=== PATIENT | female | born 1955 | race Caucasian/White ===

== ENCOUNTER 2017-04-28 14:23 | Inpatient (IN) ==
--- NOTE | 2017-04-28 15:12 | XRay Report ---
XR chest 2V Indication: Hemoptysis Comparison: Chest x-ray dated January 08, 2016 Technique: Frontal and lateral views of the chest Findings: The cardiomediastinal silhouette is stable in configuration. Chronic change of the lungs present. There is interval development of opacification within the lower/lateral left lung which may reflect consolidative process such as pneumonia. Visualized osseous and surrounding soft tissue structures appear grossly unchanged. IMPRESSION: As above. PROCEDURE INTERPRETED AT [facility] DEPARTMENT OF RADIOLOGY Final Report Signed by: Dr Carlton Cassidy
[2017-04-28 15:19] LABS: Basophils # 0.1 10*3/uL (0.0-0.2); Basophils % 0.4 % (0.0-0.8); Eosinophils # 0.1 10*3/uL (0.0-0.87); Hematocrit 34.2 VOL% (35.7-47.0); Hemoglobin 10.5 GM/DL (12.0-16.0); Immature Granulocytes % 0.6 %; Immature Granulocytes Absolute 0.07 #; Lymphocytes # 2.2 10*3/uL (1.4-4.0); Lymphocytes % 18.2 % (21.3-54.2); Mean Corpuscular HGB Conc 30.7 GM/DL (32-36); Mean Corpuscular Hemoglobin 23 PG (27-34); Mean Corpuscular Volume 74.5 FL (87-102); Mean Platelet Volume 10.4 FL (9.6-12.0); Monocytes # 1.1 10*3/uL (0.11-0.8); Monocytes % 9.3 % (1.7-12.7); Neutrophils # 8.4 10*3/uL (1.4-7.4); Neutrophils % 70.5 % (38.7-73.9); Platelet Count 458 T/CUMM (130-400); Red Blood Count 4.59 MC/CUMM (3.8-5.5); Red Cell Distribution Width 18.3 % (9.3-17.3); White Blood Count 11.9 T/CUMM (4-12)
[2017-04-28 15:32] LABS: PT Patient Result 10.1 SECS; Partial Thromboplastin Time 26.1 SECS (0-40)
--- NOTE | 2017-04-28 15:35 | Emergency Department Note ---
Maribel Patrick Gwan, am scribing for, and in the presence of, Jeremy Man MD 15:09 . Magda Patrick James D, MD, personally performed the services described in this documentation, ascribed by Vazquez López in my presence, and it is both accurate and complete [id number] . Arrival - Arrival Chief Complaint: Shortness of Breath Stated Complaint: COUGHING BLOOD/SOB/[facility] Nursing Triage Note: PT C/O SHORTNESS OF BREATH SINCE FRIDAY WITH PAINS TO LEFT RIBS WITH DEEP BREATHS. PT REPORTS SHE BEGAN COUGHING UP BRIGHT RED BLOOD THIS MORNING. PT WEARS CONTINUOUS O2 AT 3L/NC Mode of Arrival: Wheelchair Limitations: No Limitations Source: Patient, Old Records Reviewed, RN Notes Reviewed Time Seen by Provider: 04/28/17 14:47 - History of Present Illness HPI Narrative: Patient is a 61 y/o female, with a hx of bilateral lung reduction performed by Dr. Newton, who presents to the ED with a c/o SOB with an onset 3 days ago. Patient stated that she has pain in left rib with deep breathe. This prompted her visit to the ED. She continued to note [facility] 1 teaspoon full Hemoptysis prompting her visit to the ED. Nurses noted that pt is wearing O2 at 3L/NC. Patient informed staff that she was on the transplant list for lung replacement but due to her opting out of surgery, she has to report to [facility] in [place] once a year. She confirmed that she has been wheezing more than usual, that she has had a subjective fever and that she receives relief is she sits upright to breathe. At time of triage, pt' s temperature was 98.1. She denies any pain in her calf muscles or any hx of kidney failure. No other problems/concerns reported in ED. Onset (ago): day(s) Consistency: constant Severity: moderate Allergies/Adverse Reactions: Allergies Allergy/AdvReac Type Severity Reaction Status Date / Time codeine Allergy RASH Verified 04/28/17 14:35 enalaprilat [From Vasotec] Allergy RASH Verified 04/28/17 14:35 rosuvastatin [From Crestor] Allergy RASH Verified 04/28/17 14:35 Shrimp Allergy ITCHING Verified 04/28/17 14:36 Sulfa (Sulfonamide Allergy RASH Verified 04/28/17 14:35 Antibiotics) Erythromycin Base AdvReac Difficulty Verified 04/28/17 14:35 Breathing Penicillins AdvReac Difficulty Verified 04/28/17 14:35 Breathing Home Medications: Home Medications Medication Instructions Recorded Confirmed Type Albuterol Sulfate [Albuterol 1 puff INH Q4H PRN 03/07/15 04/28/17 History Inhaler] Albuterol Sulfate [Albuterol Neb] 2.5 mg RESP TX Q4HR 03/07/15 04/28/17 History Budesonide/Formoterol 160-4.5 2 puff INH BID 03/07/15 04/28/17 History [Symbicort 160-4.5] Meloxicam [Mobic] 15 mg PO QAM PRN 03/07/15 04/28/17 History Montelukast Tab [Singulair Tab] 10 mg PO QAM 03/07/15 04/28/17 History Potassium Chloride 20 meq PO QAM 03/07/15 04/28/17 History Tiotropium Inhalation [Spiriva] 18 mcg INH DAILY 03/07/15 04/28/17 History dilTIAZem HCl [Diltiazem ER (24 360 mg PO QAM 03/07/15 04/28/17 History hr)] hydroCHLOROthiazide 25 mg PO QAM 03/07/15 04/28/17 History [Hydrochlorothiazide] Albuterol Sulfate [Albuterol 1 mg PO TID PRN 04/28/17 04/28/17 History Liquid] Losartan Potassium 100 mg PO QAM 04/28/17 04/28/17 History Metformin HCl 1,000 mg PO BID 04/28/17 04/28/17 History Moxifloxacin HCl [Moxifloxacin Tab] 400 mg PO DAILY PRN 04/28/17 04/28/17 History Multivitamin (Centrum) [Centrum 1 tablet PO QAM 04/28/17 04/28/17 History Tab] Pantoprazole Tab [Protonix Tab] 40 mg PO QAM 04/28/17 04/28/17 History Vitamin E 400 unit PO QAM 04/28/17 04/28/17 History glipiZIDE [Glipizide] 2.5 mg PO BID 04/28/17 04/28/17 History predniSONE TAB [PredniSONE] 20 mg PO BID PRN 04/28/17 04/28/17 History Review of System - Review of System 12 point system: reviewed and no additional remarkable complaints except as stated - Review of System Constitutional: Absent: chills, fever Eyes: Absent: discharge, pain Head/Ears/Nose/Throat: Absent: earache Respiratory: Present: as per HPI, cough (coughin up blood ) Cardiovascular: Absent: chest pain, palpitations Gastrointestinal: Absent: abdominal pain, nausea, vomiting, diarrhea Medical,Surgical,& Family Hx - Medical History Cardio: History of: Hypertension Endocrine: History of: Diabetes Mellitus (NIDDM) Respiratory: History of: COPD, Respiratory Problems (emphysema) Gastrointestinal: History of: GERD, GI Problems (irritable bowel) Musculoskeletal: History of: Musculoskeletal Problems (carpal tunnel syndrome) - Surgical History Cardiac Surgeries: Sugical HX of: Cardiac Catheterization Thoracic Surgeries: Surgical HX of;: Lobectomy (bilateral lung reduction in 2012 ) HEENT Surgeries: Surgical HX of: Tonsilectomy & Adenoidectomy Reproductive Surgeries: Surgical HX of;: Genitourinary Surgery (RECTAL RECONSTRUCTION 1999), Hysterectomy - Family History Family History: Reports;: Family Cancer (BROTHER), Family Diabetes (MOTHER BROTHER), Family Hypertension (MOTHER AND FATHER), Family Stroke (FATHER) - Social History Smoking Status: Former smoker Frequency of Alcohol Use: None Type of Drug Use: None Exam Physical Examination: GENERAL: This is a chronically ill-appearing white female in no apparent distress. VITAL SIGNS: HEENT: Head is normocephalic and atraumatic. Pupils are equally round and reactive to light. Extraocular movement are intact. Oropharynx is benign with moist mucous membranes. NECK: Neck is soft and supple without tenderness. There are no masses. There is no lymphadenopathy. LUNGS: Lungs are clear to auscultation bilaterally. Chest rises symmetrically. There is no chest wall tenderness. CV: Heart is regular rate and rhythm without murmurs, rubs, or gallops. ABDOMEN: Abdomen is soft, non-tender to palpation. There are no abnormal masses palpated. There is no organomegaly. Bowel sounds are present and active. SKIN: Skin is warm and dry. No rash. EXTREMITIES: Patient has full range of motion without tenderness. There is no pedal edema. NEUROLOGIC: Awake, alert, and oriented x4. Cranial nerves II through XII are grossly intact. There are no motorsensory deficits. PSYCHIATRIC: Normal affect. Normal mood. Vital Signs: Vital Signs Temperature 98.1 F 04/28/17 15:16 Pulse Rate 86 04/28/17 15:16 Respiratory Rate 18 04/28/17 15:16 Blood Pressure 146/69 04/28/17 15:16 O2 Sat by Pulse Oximetry 97 04/28/17 14:31 Course - Consultations Consultation #1: Discussed with hospitalist. Patient will be admitted to their service. Time: 16:05 Results - Labs CBC & BMP: 04/28/17 15:09 04/28/17 15:09 Lab Results: I have reviewed the patients labs - Diagnostic Findings Procedure: Chest x-ray: image reviewed by me (Opacification involving the left lower lobe, pneumonia versus pulmonary infarct.), CT - chest: image reviewed by me, report reviewed by me (CT chest PA gram: No evidence of pulmonary embolus. Patient does have left lower lobe pneumonia.) Disposition Clinical Impression: COPD (chronic obstructive pulmonary disease), Pleuritic chest pain, Chronic respiratory failure, Left lower lobe pneumonia Case discussed with: patient Disposition: Still a Patient Condition: Stable
--- NOTE | 2017-04-28 15:37 | CT Report ---
CT chest PE study Indication: Hemoptysis Comparison: Chest CT dated October 24, 2013 Technique: Multiple axial tomographic images of the chest were obtained after the administration of 80 cc Omnipaque 350 intravenous contrast. PE protocol followed. Coronal and sagittal maximum intensity projection images provided. Findings: Atherosclerotic calcifications within the coronary arteries and great vessels. No convincing segmental or larger pulmonary embolism. Heart size appears within normal limits. Nonspecific [id number] prominence of left hilar lymph nodes which do not meet CT size criteria and may be reactive. Diffuse emphysematous change of the lungs with grossly stable linear bilateral upper lobe scarring with associated calcific density. There is patchy opacification within the lateral/inferior left lower lobe suspicious for pneumonia. Visualized upper abdomen demonstrates no acute abnormality. Grossly stable small left renal cyst with minimal associated calcific density. Visualized osseous and surrounding soft tissue structures appear grossly unchanged.. IMPRESSION: No convincing segmental or larger pulmonary embolism. There is patchy opacification within the lateral/inferior left lower lobe suspicious for pneumonia. Nonspecific [id number] prominence of left hilar lymph nodes which do not meet CT size criteria and may be reactive. Diffuse emphysematous change of the lungs and other detailed findings as above. The CT exam was performed using one or more of the following dose reduction techniques: Automated exposure control, adjustment of the mA and/or kV according to patient size, or use of iterative reconstruction technique. PROCEDURE INTERPRETED AT [facility] DEPARTMENT OF RADIOLOGY Final Report Signed by: Dr Carlton Cassidy
[2017-04-28 15:48] LABS: Alanine Aminotransferase 36 U/L (13-56); Albumin 3.7 G/DL (3.4-5.0); Alkaline Phosphatase 104 U/L (45-117); Aspartate Amino Transferase 16 U/L (0-37); Bilirubin,Total < 0.39 MG/DL (0.2-1.0); Blood Urea Nitrogen 18 MG/DL (7-18); Calcium 10.5 MG/DL (8.5-10.1); Glucose 189 MG/DL (74-106); Osmolality,Calculated 279.8 MOS/KG (273-304); Potassium 3.5 MMOL/L (3.5-5.1); Sodium 137 MMOL/L (136-145); Total Protein 8.4 G/DL (6.4-8.3)
[2017-04-28] MEDS ORDERED: LEVOFLOXACIN INJ 500 MG in PREMIX 1 EACH IV STA (16:05)
[2017-04-28] MEDS ORDERED: ALBUTEROL 2.5 MG/3 ML NEB RESP TX STA (16:06)
[2017-04-28] MEDS ORDERED: methylPREDNISolone SOD SUC 125 MG/2 ML VIAL IV STA (16:06)
[2017-04-28] MEDS ORDERED: KETOROLAC 30 MG/1 ML VIAL IV STA (16:10)
[2017-04-28] MEDS ORDERED: methylPREDNISolone SOD SUC 125 MG/2 ML VIAL ONE (16:50)
[2017-04-28] MEDS ORDERED: KETOROLAC 30 MG/1 ML VIAL ONE (16:50)
[2017-04-28] MEDS ORDERED: LEVOFLOXACIN INJ 100 ML IV ONE (17:06)
[2017-04-28] MEDS ORDERED: DEXTROSE 50% 25 GM/50 ML VIAL IV PRN (17:39)
[2017-04-28] MEDS ORDERED: ONDANSETRON 4 MG/2 ML VIAL IV PRN (17:39)
[2017-04-28] MEDS ORDERED: ALBUTEROL 2.5 MG/3 ML NEB RESP TX PRN (17:39)
[2017-04-28] MEDS ORDERED: GLUCAGON 1 MG VIAL IM PRN (17:39)
[2017-04-28] MEDS ORDERED: ACETAMINOPHEN 325 MG TABLET PO PRN (17:39)
--- NOTE | 2017-04-28 18:07 | Hospitalist History & Physical ---
Assessment and Plan (1) Left lower lobe pneumonia Status: Acute Assessment and plan: Admit to med surg. Pt given IV antibiotic (Levaquin) in ED. Will recheck labs in am. Continue antibiotics. Supplemental O2 ordered. Monitor O2 sats. Current Visit: Yes (2) COPD (chronic obstructive pulmonary disease) Status: Chronic Assessment and plan: IV steroids. Breathing treatments. Supplemental O2. Continue IV antibiotics. Current Visit: No (3) Diabetes Status: Chronic Assessment and plan: Accucheck ACHS. Implement SSI. Hemoglobin A1c in am. Pt. on steroids try to maintain control of blood sugars. Current Visit: No (4) O2 dependent Status: Chronic Assessment and plan: Pt. wears home O2. Current Visit: No History of Present Illness Chief complaint: shortness of breath History of present illness: Ms. Wiseman is a 61 year old white female with a history of htn, dm, COPD, bilateral lung reduction surgery, O2 dependent x 10yrs, IBS, and hiatal hernia that presents to the ED for further evaluation of shortness of breath. Pt. is accompanied by her daughter who is also her director of quality control. Pt. states that she began to feel ill on Friday. It started with left sided pain. Pt. does admit to taking muscle relaxants and even 2 of her 's but the pain continued. She also began to experience shortness of breath and later developed a cough. The cough was initially nonproductive but patient began to cough up blood tinged sputum today. Pt. wears home O2 at 3L and has been for the last 10 yrs. Pt. reports that she had a lung reduction surgery in Aug 2013. Pt denies chest, abdominal, or calf pain. Pt. reports a subjective fever but denies any other complaints in the ED. CT revealed LLL pneumonia. Pt. will be admitted to the hospitalist service for further evaluation and treatment. Home Medications Medication Instructions Recorded Confirmed Type Albuterol Sulfate [Albuterol 1 puff INH Q4H PRN 03/07/15 04/28/17 History Inhaler] Albuterol Sulfate [Albuterol Neb] 2.5 mg RESP TX Q4HR 03/07/15 04/28/17 History Budesonide/Formoterol 160-4.5 2 puff INH BID 03/07/15 04/28/17 History [Symbicort 160-4.5] Meloxicam [Mobic] 15 mg PO QAM PRN 03/07/15 04/28/17 History Montelukast Tab [Singulair Tab] 10 mg PO QAM 03/07/15 04/28/17 History Potassium Chloride 20 meq PO QAM 03/07/15 04/28/17 History Tiotropium Inhalation [Spiriva] 18 mcg INH DAILY 03/07/15 04/28/17 History dilTIAZem HCl [Diltiazem ER (24 360 mg PO QAM 03/07/15 04/28/17 History hr)] hydroCHLOROthiazide 25 mg PO QAM 03/07/15 04/28/17 History [Hydrochlorothiazide] Albuterol Sulfate [Albuterol 1 mg PO TID PRN 04/28/17 04/28/17 History Liquid] Losartan Potassium 100 mg PO QAM 04/28/17 04/28/17 History Metformin HCl 1,000 mg PO BID 04/28/17 04/28/17 History Moxifloxacin HCl [Moxifloxacin Tab] 400 mg PO DAILY PRN 04/28/17 04/28/17 History Multivitamin (Centrum) [Centrum 1 tablet PO QAM 04/28/17 04/28/17 History Tab] Pantoprazole Tab [Protonix Tab] 40 mg PO QAM 04/28/17 04/28/17 History Vitamin E 400 unit PO QAM 04/28/17 04/28/17 History glipiZIDE [Glipizide] 2.5 mg PO BID 04/28/17 04/28/17 History predniSONE TAB [PredniSONE] 20 mg PO BID PRN 04/28/17 04/28/17 History Allergies Allergy/AdvReac Type Severity Reaction Status Date / Time codeine Allergy RASH Verified 04/28/17 14:35 enalaprilat [From Vasotec] Allergy RASH Verified 04/28/17 14:35 rosuvastatin [From Crestor] Allergy RASH Verified 04/28/17 14:35 Shrimp Allergy ITCHING Verified 04/28/17 14:36 Sulfa (Sulfonamide Allergy RASH Verified 04/28/17 14:35 Antibiotics) Erythromycin Base AdvReac Difficulty Verified 04/28/17 14:35 Breathing Penicillins AdvReac Difficulty Verified 04/28/17 14:35 Breathing Medical,Surgical,& Family Hx - Medical History Cardio: History of: Hypertension Endocrine: History of: Diabetes Mellitus (NIDDM) Respiratory: History of: COPD, Respiratory Problems (emphysema) Gastrointestinal: History of: GERD, GI Problems (irritable bowel) Musculoskeletal: History of: Musculoskeletal Problems (carpal tunnel syndrome) - Surgical History Cardiac Surgeries: Sugical HX of: Cardiac Catheterization Thoracic Surgeries: Surgical HX of;: Lobectomy (bilateral lung reduction in 2012 ) HEENT Surgeries: Surgical HX of: Tonsilectomy & Adenoidectomy Reproductive Surgeries: Surgical HX of;: Genitourinary Surgery (RECTAL RECONSTRUCTION 1999), Hysterectomy - Family History Family History: Reports;: Family Cancer (BROTHER), Family Diabetes (MOTHER BROTHER), Family Hypertension (MOTHER AND FATHER), Family Stroke (FATHER) - Social History Smoking Status: Former smoker Frequency of Alcohol Use: None Type of Drug Use: None Marital Status: Lives With:: Spouse Functional capacity: uses cane/walker - Constitutional Constitutional: Present: fever(s), weakness. Absent: chills, night sweats - EENT Eyes: Present: loss of vision, requires corrective lense Ears: Absent: decreased hearing Nose, mouth and throat: Absent: epistaxis, headache(s) - Cardiovascular Cardiovascular: Present: dyspnea on exertion. Absent: chest pain at rest, edema - Respiratory Respiratory: Present: cough (blood tinged), dyspnea - Gastrointestinal Gastrointestinal: Absent: abdominal pain, melena - Musculoskeletal Musculoskeletal: Absent: back pain, limited range of motion - Neurological Neurological: Absent: confusion, dizziness Exam - Constitutional Vitals: Period Temp Pulse Resp BP Sys/Capps Pulse Ox Last 24 Hr 98.1 F-98.1 F 77-97 16-24 108-148/55-78 92-100 General appearance: normal weight, no acute distress - Head Head exam: Present: normal inspection, normocephalic - Eye Eye exam: Present: EOMI. Absent: scleral icterus Pupils: Present: AURELIANO. Absent: fixed - ENT ENT exam: Present: normal exam - Neck Neck exam: Present: normal inspection. Absent: thyromegaly - Respiratory Respiratory exam: Present: clear to auscultation bilaterally. Absent: wheezes - Cardiovascular Cardiovascular exam: Present: regular rate and rhythm - GI/Abdominal GI/Abdominal exam: Present: normal bowel sounds, soft. Absent: tenderness - Extremities Exam Extremities exam: Present: normal capillary refill, full ROM. Absent: edema - Neurological Exam Neurological exam: Present: alert, oriented X3 - Psychiatric Psychiatric exam: Present: normal affect, normal mood - Skin Skin exam: Present: normal color, warm, dry Results - Labs CBC & BMP: 04/28/17 15:09 04/28/17 15:09 Lab Results: I have reviewed the past 24 hour labs
[2017-04-28] MEDS: methylPREDNISolone SOD SUC 40 MG/1 ML VIAL IV SCH (18:44)
[2017-04-28] MEDS: ALBUTEROL/IPRATROPIUM 3 ML NEB RESP TX SCH (19:52)
[2017-04-28] MEDS: glipiZIDE 5 MG TABLET PO SCH (21:33)
[2017-04-28] MEDS: INSULIN LISPRO 100 UNIT/ML SUBCUT SCH (21:34)
[2017-04-28] MEDS: BUDESONIDE/FORMOTEROL 160-4.5 INHALER 6 GM INH SCH (21:35)
[2017-04-29] MEDS: ALBUTEROL/IPRATROPIUM 3 ML NEB RESP TX SCH ×4 (01:10→19:24)
[2017-04-29] MEDS: methylPREDNISolone SOD SUC 40 MG/1 ML VIAL IV SCH ×3 (01:40→23:21)
[2017-04-29 06:33] LABS: Basophils % 0.2 % (0.0-0.8); Hematocrit 31.5 VOL% (35.7-47.0); Hemoglobin 9.5 GM/DL (12.0-16.0); Immature Granulocytes % 0.9 %; Immature Granulocytes Absolute 0.05 #; Lymphocytes # 0.5 10*3/uL (1.4-4.0); Lymphocytes % 8.2 % (21.3-54.2); Mean Corpuscular HGB Conc 30.2 GM/DL (32-36); Mean Corpuscular Hemoglobin 23 PG (27-34); Mean Corpuscular Volume 74.8 FL (87-102); Mean Platelet Volume 10.9 FL (9.6-12.0); Monocytes # 0.1 10*3/uL (0.11-0.8); Monocytes % 1.1 % (1.7-12.7); Neutrophils % 89.6 % (38.7-73.9); Platelet Count 391 T/CUMM (130-400); Red Blood Count 4.21 MC/CUMM (3.8-5.5); Red Cell Distribution Width 18.2 % (9.3-17.3); White Blood Count 5.6 T/CUMM (4-12)
[2017-04-29 07:12] LABS: Band Neutrophils 1 % (0-10); Hypochromasia 1+; Lymphocytes 5 % (20-55); Platelet Estimate Adequate; Segmented Neutrophils 93 % (50-85); Total Cells Counted 100
[2017-04-29 07:13] LABS: Giant Platelets Few
[2017-04-29 07:18] LABS: Albumin 3.4 G/DL (3.4-5.0); Bilirubin,Total 0.7 MG/DL (0.2-1.0); Free T4 (Free Thyroxine) 1.08 NG/DL (0.76-1.46); Potassium 4.1 MMOL/L (3.5-5.1); Risk Ratio 6.17; Thyroid Stimulating Hormone 0.499 uIU/ml (0.358-3.74); Total Protein 7.3 G/DL (6.4-8.3); VLDL CHOLESTEROL 37.2 MG/DL
[2017-04-29] MEDS: INSULIN LISPRO 100 UNIT/ML SUBCUT SCH ×4 (09:10→21:18)
[2017-04-29] MEDS: LOSARTAN 50 MG TABLET PO SCH (09:11)
[2017-04-29] MEDS: PANTOPRAZOLE 40 MG TABLET PO SCH (09:11)
[2017-04-29] MEDS: DILTIAZEM CD 180 MG CAPSULE PO SCH (09:11)
[2017-04-29] MEDS: glipiZIDE 5 MG TABLET PO SCH ×2 (09:11→21:18)
[2017-04-29] MEDS: hydroCHLOROthiazide 25 MG TABLET PO SCH (09:11)
[2017-04-29] MEDS: BUDESONIDE/FORMOTEROL 160-4.5 INHALER 6 GM INH SCH ×2 (09:14→21:23)
[2017-04-29 11:38] LABS: Folate 21.7 NG/ML (5.4-24.0)
--- NOTE | 2017-04-29 11:39 | Pulmonology Consult Note ---
History of Present Illness Chief complaint: Pneumonia History of present illness: Giovany Haywood, [facility], acting as scribe for Dr. Tim Newton Mrs. Wiseman is a 61-year-old white female from [place], [place], who we have been asked to see in pulmonary consultation for evaluation and treatment. The request for consultation was made by Dr. Justin Kennedy. Patient presented to [facility] emergency room the evening of 04/28/2017 with complaints of increased shortness of breath, pain in her left side with deep breaths, and coughing up bright red blood per her report. She then evaluated at the [facility], but it was felt she needed higher level of care and was, therefore, referred to the emergency room. On evaluation, the patient was found to have an acute left lower lung infiltrate compatible with pneumonia. She was admitted for further evaluation and care. Patient was seen today along with Hilario Han RN, and a female family member. Patient reports increasing shortness of breath, dyspnea on exertion, productive cough, and left-sided rib pain that have been progressively worsening since her initial visit on April 03 at her local [place]. Yesterday morning the patient coughed up some bright red blood. She has not had that before and has not had that since. There is been no cardiac angina or palpitations. No reported dysphasia or reflux. No bleeding from any other site. No change in bowel or bladder habits. No TIA symptoms or syncope. All other systems are reviewed and were negative. Note, she is seen yearly at the [facility] in [place] by a aircraft part assembler. To our knowledge, the last time she was seen there was in May 2016. She last saw Dr. Newton 12/09/2016. She is followed locally at the [place] by Dr. Leah Da Silva. She is followed from a GI standpoint by Dr. Georges Chand. Allergies: Codeine. Crestor caused a rash. Erythromycin. Hydrocodone/ acetaminophen. Penicillin. Sulfa. Vasotec. Home medications: See list Hospital medications: See list Past medical history: Positive for diabetes mellitus, bronchospastic disease, hyperlipidemia, and gastroesophageal reflux disease. There is a history of bullous emphysema requiring bilateral reductive surgery. August 2015 the patient had an E scope with dilatation of the esophagus by Dr. Georges Chand. There is also history of colon polyps. Family history: Positive for colon cancer, diabetes, hypertension, thyroid disease, and irritable bowel syndrome. Surgical history: Positive for cardiac cath, bilateral lung reduction in 2012, tonsillectomy and adenoidectomy in 1963, complete hysterectomy in 2000, and rectal reconstruction in 1999. She also had a right hand carpal tunnel syndrome repair in 1997. Social history: Patient is a previous smoker who stopped in 2007. She had an approximately [id number] history. She does not use alcohol. Past procedures: Pulmonary function test on 09/18/2015 showed (1) severe obstructive lung disease; forced vital capacity was 2.18 L or 88% of predicted; FEV1 was 0.69 L or 39% of predicted; FEV1 divided by forced vital capacity was 32% of predicted; FEF 25/75 was 11% of predicted (2) very small bronchodilator effect; maximum voluntary ventilation improved by 80% (3) no restrictive disease (4) DLCO was 40% of predicted and DL/VA was 61% of predicted (5) maximum voluntary ventilation was 26 L or 29% of predicted (6) on 09/18/2015 O2 sats on room air were 95% Chest x-ray. Done 04/28/2017. My interpretation. Acute left lower lung infiltrate compatible with pneumonia. CT of the chest on 04/28/2017 showed no convincing segmental or larger pulmonary embolism. It was patchy opacification within the lateral/inferior left lower lobe suspicious for pneumonia. Nonspecific mild to moderate prominence of the left hilar lymph nodes which do not meet CT size criteria and were noted to possibly be reactive. Diffuse emphysematous changes of the lungs and other detailed findings as reported. Laboratory: White count admission was 11,900 but has now fallen to 5600 with 89.6% segs, 8.2% lymphs, 1.1% monos; H&H 9.5/31.5 with decreased indices and increased red blood cell distribution with; platelet count 391,000; INR 1.0; creatinine has risen from 1.10-1.30 (azotemia), BUN 20, sodium 136, potassium 4.1, calcium 10.0, albumin 3.4, total protein 7.3; liver function tests within normal limits; hemoglobin A1c 8.2% showing poor control of her diabetes mellitus ; TSH and free T4 normal at 0.49 9 AM 1.08 respectively; fasting lipid profile shows a total cholesterol of 222, LDL 160, HDL 36, and triglycerides 186 Home Medications Medication Instructions Recorded Confirmed Type Albuterol Sulfate [Albuterol 1 puff INH Q4H PRN 03/07/15 04/28/17 History Inhaler] Albuterol Sulfate [Albuterol Neb] 2.5 mg RESP TX Q4HR 03/07/15 04/28/17 History Budesonide/Formoterol 160-4.5 2 puff INH BID 03/07/15 04/28/17 History [Symbicort 160-4.5] Meloxicam [Mobic] 15 mg PO QAM PRN 03/07/15 04/28/17 History Montelukast Tab [Singulair Tab] 10 mg PO QAM 03/07/15 04/28/17 History Potassium Chloride 20 meq PO QAM 03/07/15 04/28/17 History Tiotropium Inhalation [Spiriva] 18 mcg INH DAILY 03/07/15 04/28/17 History dilTIAZem HCl [Diltiazem ER (24 360 mg PO QAM 03/07/15 04/28/17 History hr)] hydroCHLOROthiazide 25 mg PO QAM 03/07/15 04/28/17 History [Hydrochlorothiazide] Albuterol Sulfate [Albuterol 1 mg PO TID PRN 04/28/17 04/28/17 History Liquid] Budesonide/Formoterol 160-4.5 1 puff PO BID 04/28/17 04/28/17 History [Symbicort 160-4.5] Fluticasone Propionate 1 spray BOTH NARES BID 04/28/17 04/28/17 History [Fluticasone 50 mcg Nasal [place]] Losartan Potassium 100 mg PO QAM 04/28/17 04/28/17 History Metformin HCl 1,000 mg PO BID 04/28/17 04/28/17 History Moxifloxacin HCl [Moxifloxacin Tab] 400 mg PO DAILY PRN 04/28/17 04/28/17 History Multivitamin (Centrum) [Centrum 1 tablet PO QAM 04/28/17 04/28/17 History Tab] Pantoprazole Tab [Protonix Tab] 40 mg PO QAM 04/28/17 04/28/17 History Vitamin E 400 unit PO QAM 04/28/17 04/28/17 History glipiZIDE [Glipizide] 2.5 mg PO BID 04/28/17 04/28/17 History predniSONE TAB [PredniSONE] 20 mg PO BID PRN 04/28/17 04/28/17 History Allergies Allergy/AdvReac Type Severity Reaction Status Date / Time codeine Allergy RASH Verified 04/28/17 14:35 enalaprilat [From Vasotec] Allergy RASH Verified 04/28/17 14:35 rosuvastatin [From Crestor] Allergy RASH Verified 04/28/17 14:35 Shrimp Allergy ITCHING Verified 04/28/17 14:36 Sulfa (Sulfonamide Allergy RASH Verified 04/28/17 14:35 Antibiotics) Erythromycin Base AdvReac Difficulty Verified 04/28/17 14:35 Breathing Penicillins AdvReac Difficulty Verified 04/28/17 14:35 Breathing Exam (Pulmonay) H&P - Constitutional Vitals: Period Temp Pulse Resp BP Sys/Capps Pulse Ox Last 24 Hr 96.2 F-98.2 F 72-100 16-24 108-148/55-89 92-100 Exam: Psych: Oriented x 3; a pleasant and cooperative patient HEENT: Pupils, irises, sclera, conjunctiva, and eyelids are normal. The face is symmetrical without rash or masses. Lips, tongue, buccal mucosa, soft and hard palates, and pharynx are WNL Neck: Symmetrical. Thyroid was not palpated. Lymphatics: No submandibular, cervical, or supraclavicular adenopathy Chest: Symmetrical and hyperinflated with prolonged incomplete expiration; no appreciable wheeze Breasts: Deferred CV: Heart sounds are distant; PMI was probably normal; no murmur, rub, or gallop Arterial: Carotid upstroke is fair. No appreciable bruit. Upper extremity pulses were palpable. Lower extremity pulses were nonpalpable, but I see no evidence of ischemia Venous: Exam of the neck, upper, and lower extremities is normal Abd: No appreciable organomegaly, masses, tenderness, or bruit; Bowel sounds are positive 4; The aorta was not palpated /Rectal: Deferred Extremities: No clubbing, cyanosis, edema, or obvious DVT Skin: No cancerous or infectious lesions of the exposed, examined skin; the perineal area was not examined M/S: Age appropriate loss of the normal curvature of the cervical, thoracic, and lumbar spine Neurological: Cranial nerves are intact, Long tract motor function is intact; Sensory exam was not done; gait was not tested. The remainder of the exam was noncontributory. Impression: #1: Acute left lower lobe pneumonia #2: Bronchospastic disease #3: History of bullous emphysema requiring bilateral pulmonary reductive surgery #4: History of tobacco abuse. Note patient stopped smoking in 2007. She had an approximately 939-[id number]-[id number] history. #5: Azotemia #6: Anemia #7: History of gastroesophageal reflux disease with gastric contents coming up into the throat while asleep. Presently under good control. #8: Hyperlipidemia #9: Diabetes mellitus #10: Degenerative joint disease mainly in hands and knees #11: History of solid dysphagia #12: See past history Plan: #1: Agree with present antibiotics #2: Check sputum for Gram stain, culture and sensitivity #3: Check cold agglutinins and Legionella #4: Continue inhalation therapy #5: Check iron studies, B12 level, and folate #6: See orders We appreciate this consult and will follow along with you. Medical,Surgical,& Family Hx - Medical History Cardio: History of: Hypertension Endocrine: History of: Diabetes Mellitus (NIDDM) Respiratory: History of: COPD, Respiratory Problems (emphysema) Gastrointestinal: History of: Diverticulitis/ Diverticulosis, GERD, GI Problems (irritable bowel) Musculoskeletal: History of: Musculoskeletal Problems (carpal tunnel syndrome) - Surgical History Cardiac Surgeries: Sugical HX of: Cardiac Catheterization Thoracic Surgeries: Surgical HX of;: Lobectomy (bilateral lung reduction in 2012 ) Neurologic Surgeries: Patient denies: Neurologic Surgery HEENT Surgeries: Surgical HX of: Tonsilectomy & Adenoidectomy Reproductive Surgeries: Surgical HX of;: Genitourinary Surgery (RECTAL RECONSTRUCTION 1999), Hysterectomy - Family History Family History: Reports;: Family Cancer (BROTHER), Family Diabetes (MOTHER BROTHER), Family Hypertension (MOTHER AND FATHER), Family Stroke (FATHER) - Social History Smoking Status: Former smoker Frequency of Alcohol Use: None Type of Drug Use: None Results - Labs CBC & BMP: 04/29/17 05:21 04/29/17 05:21
[2017-04-29 12:15] LABS: % Iron Saturation 5.6 % (18-50)
--- NOTE | 2017-04-29 15:13 | Hospitalist Progress Note ---
Assessment and Plan (1) Left lower lobe pneumonia Status: Acute Assessment and plan: (1) Left lower lobe pneumonia Status: Acute Assessment and plan: contiune iv antbx, oxygen\duoneb, pulmonary consulted will follow the recs Current Visit: Yes (2) COPD (chronic obstructive pulmonary disease) Status: Chronic Assessment and plan: IV steroids. Breathing treatments. Supplemental O2. Continue IV antibiotics. Current Visit: No (3) Diabetes Status: Chronic Assessment and plan: Accucheck ACHS. Implement SSI. Hemoglobin A1c in am. Pt. on steroids try to maintain control of blood sugars. Current Visit: No (4) O2 dependent Status: Chronic Assessment and plan: Pt. wears home O2. Current Visit: No Current Visit: Yes Hospitalist: Subjective Interval history: feeling little better, still mild sob , with cough productive of sputum no further hemoptysis Exam - Constitutional Vitals: Period Temp Pulse Resp BP Sys/Capps Pulse Ox Last 24 Hr 96.2 F-98.2 F 72-113 16-24 125-148/55-89 92-100 heent, pearle neck, supple. chest bibasilar rhonchi with prolong expiration cvs, s1 s2. abd, soft, bs+ statement processor, alert orientedx3 afocal Results - Labs CBC & BMP: 04/29/17 05:21 04/29/17 05:21
[2017-04-29] MEDS: SODIUM CHLORIDE 0.45% 1,000 ML IV SCH (15:23)
[2017-04-29] MEDS: LEVOFLOXACIN INJ 750 MG in PREMIX 1 EACH IV SCH (18:10)
[2017-04-29] MEDS: MORPHINE 2 MG/1 ML SYRINGE IV PRN (18:10)
[2017-04-29] MEDS ORDERED: INSULIN GLARGINE 100 UNIT/ML SUBCUT SCH (21:00)
[2017-04-29] MEDS: CYCLOBENZAPRINE 10 MG TABLET PO SCH (21:18)
[2017-04-30] MEDS: ALBUTEROL/IPRATROPIUM 3 ML NEB RESP TX SCH ×4 (00:09→19:52)
[2017-04-30] MEDS: SODIUM CHLORIDE 0.45% 1,000 ML IV SCH ×2 (03:03→16:45)
[2017-04-30 07:17] LABS: Calcium 9.3 MG/DL (8.5-10.1); Osmolality,Calculated 288.8 MOS/KG (273-304); Potassium 3.9 MMOL/L (3.5-5.1)
[2017-04-30 07:20] LABS: Bilirubin,Total 0.5 MG/DL (0.2-1.0); Calcium 9.2 MG/DL (8.5-10.1); Osmolality,Calculated 287.8 MOS/KG (273-304); Potassium 3.8 MMOL/L (3.5-5.1); Total Protein 6.4 G/DL (6.4-8.3)
[2017-04-30 07:55] LABS: Basophils % 0.1 % (0.0-0.8); Immature Granulocytes Absolute 0.18 #; Lymphocytes # 0.8 10*3/uL (1.4-4.0); Lymphocytes % 4.4 % (21.3-54.2); Mean Corpuscular Hemoglobin 23 PG (27-34); Mean Corpuscular Volume 74.7 FL (87-102); Mean Platelet Volume 10.6 FL (9.6-12.0); Monocytes # 0.5 10*3/uL (0.11-0.8); Monocytes % 2.9 % (1.7-12.7); Neutrophils # 16.9 10*3/uL (1.4-7.4); Neutrophils % 91.6 % (38.7-73.9); Platelet Count 384 T/CUMM (130-400); Red Blood Count 3.88 MC/CUMM (3.8-5.5); Red Cell Distribution Width 18.3 % (9.3-17.3); White Blood Count 18.4 T/CUMM (4-12)
[2017-04-30 08:13] LABS: Hypochromasia 1+; Lymphocytes 3 % (20-55); Ovalocytes Slight; Platelet Estimate Adequate; Segmented Neutrophils 93 % (50-85); Total Cells Counted 100
[2017-04-30] MEDS: INSULIN LISPRO 100 UNIT/ML SUBCUT SCH ×4 (08:53→21:03)
[2017-04-30] MEDS: hydroCHLOROthiazide 25 MG TABLET PO SCH (08:53)
[2017-04-30] MEDS: LOSARTAN 50 MG TABLET PO SCH (08:53)
[2017-04-30] MEDS: glipiZIDE 5 MG TABLET PO SCH ×2 (08:54→20:58)
[2017-04-30] MEDS: PANTOPRAZOLE 40 MG TABLET PO SCH (08:54)
[2017-04-30] MEDS: DILTIAZEM CD 180 MG CAPSULE PO SCH (08:54)
[2017-04-30] MEDS: BUDESONIDE/FORMOTEROL 160-4.5 INHALER 6 GM INH SCH ×2 (08:55→21:03)
[2017-04-30] MEDS: methylPREDNISolone SOD SUC 40 MG/1 ML VIAL IV SCH ×2 (09:30→22:57)
[2017-04-30] MEDS: MORPHINE 2 MG/1 ML SYRINGE IV PRN ×2 (09:30→22:59)
[2017-04-30] MEDS: FERROUS SULFATE 325 MG TABLET PO SCH ×2 (11:32→20:58)
--- NOTE | 2017-04-30 12:09 | Pulmonology Progress Note ---
Pulmonary - PN: Subj Interval history: Giovany Haywood, [facility] acting as scribe for Dr. Tim Newton Mrs. Wiseman is a 61-year-old white female who we saw in initial pulmonary consultation on 04/29/2017. At that time, our impressions were: #1: Acute left lower lobe pneumonia #2: Bronchospastic disease #3: History of bullous emphysema requiring bilateral pulmonary reductive surgery #4: History of tobacco abuse. Note patient stopped smoking in 2007. She had an approximately 098-[id number]-[id number] history. #5: Azotemia #6: Anemia #7: History of gastroesophageal reflux disease with gastric contents coming up into the throat while asleep. Presently under good control. #8: Hyperlipidemia #9: Diabetes mellitus #10: Degenerative joint disease mainly in hands and knees #11: History of solid dysphagia #12: See past history 04/30/2017. The patient was seen today along with several family members. She states that overall she feels her breathing has improved. She continues to have dyspnea on exertion and significant fatigue. We have explained that this will take quite a while to completely resolve. Sputum Gram stain showed few gram-positive cocci in pairs, chains and clusters. Sputum culture is growing organisms at 12 hours. Cold agglutinins are negative. Legionella is pending. She is presently being treated with Levaquin. We made no adjustments to this today. Yesterday, it was noted that she was anemic with decreased indices and increased red blood cell distribution width. B12 level and folate were normal, however, iron studies are significantly low. We have started ferrous sulfate 325 mg twice daily. We will get stools for blood 3 and reticulocytes. Medications have been reviewed. Ferrous sulfate was started today. Labs have been reviewed. White count is 18,400 with 91.6% segs; H&H 9.0/29.0; platelet count 394,000; creatinine 1.00, BUN 29, electrolytes are normal, calcium 9.3, albumin 3.0, total protein 6.4 Exam (Progress Note) - Constitutional Vitals: Period Temp Pulse Resp BP Sys/Capps Pulse Ox Last 24 Hr 96.1 F-97.5 F 70-107 18-20 118-152/58-72 92-99 Exam: Chest is wheeze free; hyperinflated with prolonged and incomplete expiration Heart no gallop Abdomen is nontender and nondistended; bowel sounds are positive 4 Extremities with nothing to suggest acute deep venous thrombophlebitis Psychiatric oriented 3 Neurologic long-term motor function is intact Plan: Continue present treatment. Follow-up final sputum culture when available. Repeat chest x-ray in the morning. Patient inquired about possible discharge. We told her that she if she should continue to improve at this rate , she may be ready for discharge as early as tomorrow. We will take this on a day by day basis. She understands. Results - Labs CBC & BMP: 04/30/17 07:36 04/30/17 06:08
--- NOTE | 2017-04-30 17:27 | Hospitalist Progress Note ---
Assessment and Plan (1) Diabetes Status: Chronic Current Visit: No (2) COPD (chronic obstructive pulmonary disease) Status: Acute Current Visit: Yes (3) Left lower lobe pneumonia Status: Acute Current Visit: Yes Hospitalist: Subjective Interval history: Patient doing better. Still reports MCCLELLAN. Pulmonary assisting. Continue breathing treatments, levaquin. Possible discharge soon. Exam - Constitutional Vitals: Period Temp Pulse Resp BP Sys/Capps Pulse Ox Last 24 Hr 96.1 F-97.5 F 70-103 16-20 118-144/58-72 93-99 General appearance: normal weight - Head Head exam: Present: normocephalic, atraumatic - Eye Eye exam: Present: EOMI Pupils: Present: ARUELIANO - ENT ENT exam: Present: normal exam - Neck Neck exam: Present: normal inspection - Respiratory Respiratory exam: Present: clear to auscultation bilaterally. Absent: wheezes - Cardiovascular Cardiovascular exam: Present: regular rate and rhythm - GI/Abdominal GI/Abdominal exam: Present: normal bowel sounds, soft. Absent: tenderness, rebound - Extremities Exam Extremities exam: Present: normal inspection - Back Exam Back exam: Present: normal inspection - Neurological Exam Neurological exam: Present: alert, oriented X3 - Psychiatric Psychiatric exam: Present: normal affect, normal mood - Skin Skin exam: Present: warm, intact Results - Labs CBC & BMP: 04/30/17 07:36 04/30/17 06:08
[2017-04-30] MEDS: LEVOFLOXACIN INJ 750 MG in PREMIX 1 EACH IV SCH (17:49)
[2017-04-30] MEDS: CYCLOBENZAPRINE 10 MG TABLET PO SCH (20:58)
[2017-04-30] MEDS: INSULIN GLARGINE 100 UNIT/ML SUBCUT SCH (21:02)
[2017-05-01] MEDS: ALBUTEROL/IPRATROPIUM 3 ML NEB RESP TX SCH ×4 (01:53→19:00)
[2017-05-01] MEDS: SODIUM CHLORIDE 0.45% 1,000 ML IV SCH ×2 (01:54→09:27)
[2017-05-01 06:58] LABS: Basophils % 0.1 % (0.0-0.8); Hematocrit 28.7 VOL% (35.7-47.0); Hemoglobin 8.8 GM/DL (12.0-16.0); Immature Granulocytes % 2.8 %; Immature Granulocytes Absolute 0.41 #; Lymphocytes # 0.8 10*3/uL (1.4-4.0); Lymphocytes % 5.6 % (21.3-54.2); Mean Corpuscular HGB Conc 30.7 GM/DL (32-36); Mean Corpuscular Hemoglobin 23 PG (27-34); Mean Corpuscular Volume 74.9 FL (87-102); Mean Platelet Volume 10.8 FL (9.6-12.0); Monocytes # 0.4 10*3/uL (0.11-0.8); Monocytes % 2.8 % (1.7-12.7); Neutrophils # 12.9 10*3/uL (1.4-7.4); Neutrophils % 88.7 % (38.7-73.9); Platelet Count 372 T/CUMM (130-400); Red Blood Count 3.83 MC/CUMM (3.8-5.5); Red Cell Distribution Width 18.2 % (9.3-17.3); White Blood Count 14.6 T/CUMM (4-12)
[2017-05-01] MEDS: INSULIN LISPRO 100 UNIT/ML SUBCUT SCH ×5 (08:03→22:57)
[2017-05-01] MEDS: LOSARTAN 50 MG TABLET PO SCH (09:17)
[2017-05-01] MEDS: hydroCHLOROthiazide 25 MG TABLET PO SCH (09:18)
[2017-05-01] MEDS: DILTIAZEM CD 180 MG CAPSULE PO SCH (09:18)
[2017-05-01] MEDS: FERROUS SULFATE 325 MG TABLET PO SCH ×2 (09:18→20:21)
--- NOTE | 2017-05-01 09:19 | XRay Report ---
Exam: XR chest 2V Date: 05/01/2017 748 AM Indication: Pneumonia Comparison: None Technical: PA lateral Findings: Patchy infiltrate present in the left lateral base with some minimal infiltrate in the right base and some minimal pleural diaphragmatic reaction. The heart is normal in size. The mediastinum is intact. The bony structures are otherwise unremarkable. Impression: 1. Patchy infiltrates in the base regions bilaterally left greater than right similar to previous study PROCEDURE INTERPRETED AT [facility] DEPARTMENT OF RADIOLOGY Final Report Signed by: Dr. Tim Alejandro
[2017-05-01] MEDS: PANTOPRAZOLE 40 MG TABLET PO SCH (09:21)
[2017-05-01] MEDS: glipiZIDE 5 MG TABLET PO SCH ×2 (09:21→20:21)
[2017-05-01] MEDS: BUDESONIDE/FORMOTEROL 160-4.5 INHALER 6 GM INH SCH ×2 (09:22→20:23)
[2017-05-01] MEDS: methylPREDNISolone SOD SUC 40 MG/1 ML VIAL IV SCH (10:32)
[2017-05-01] MEDS ORDERED: MAGNESIUM HYDROXIDE SUSP 30 ML UDCUP PO PRN ×2 (10:35→10:44)
--- NOTE | 2017-05-01 10:55 | Pulmonology Progress Note ---
Pulmonary - PN: Subj Interval history: Giovany Haywood, [facility] acting as scribe for Dr. Tim Newton Mrs. Wiseman is a 61-year-old white female who we saw in initial pulmonary consultation on 04/29/2017. At that time, our impressions were: #1: Acute left lower lobe pneumonia #2: Bronchospastic disease #3: History of bullous emphysema requiring bilateral pulmonary reductive surgery #4: History of tobacco abuse. Note patient stopped smoking in 2007. She had an approximately 362-cpxc-mnbi history. #5: Azotemia #6: Anemia #7: History of gastroesophageal reflux disease with gastric contents coming up into the throat while asleep. Presently under good control. #8: Hyperlipidemia #9: Diabetes mellitus #10: Degenerative joint disease mainly in hands and knees #11: History of solid dysphagia #12: See past history 04/30/2017. The patient was seen today along with several family members. She states that overall she feels her breathing has improved. She continues to have dyspnea on exertion and significant fatigue. We have explained that this will take quite a while to completely resolve. Sputum Gram stain showed few gram-positive cocci in pairs, chains and clusters. Sputum culture is growing organisms at 12 hours. Cold agglutinins are negative. Legionella is pending. She is presently being treated with Levaquin. We made no adjustments to this today. Yesterday, it was noted that she was anemic with decreased indices and increased red blood cell distribution width. B12 level and folate were normal, however, iron studies are significantly low. We have started ferrous sulfate 325 mg twice daily. We will get stools for blood 3 and reticulocytes. 05/01/2017. The patient was seen today along with her and Hilario Han RN. Patient's chest x-ray today shows the previously noted left lower lung infiltrate is less dense. She does, however, continued to cough up some old blood occasionally bright red blood is mixed with it. We will ask for sputum for cytology daily. She has been found to have iron deficiency anemia. She is followed from a standpoint by Dr. Georges Chand at [place]. She states last year he attempted a colonoscopy, but this can be completed secondary to blood pressure issues. When she was last seen by Dr. Solomon at our clinic, [facility] secondary to her history of colon polyps. She states that this is "in the works" but has not been able to be done secondary to her acute illness now. Stools for blood are pending. Patient complains of constipation, so we have started milk of magnesia. Medications have been reviewed. Labs have been reviewed. White count is 14,600 with 88.7% segs; H&H 8.8/28.7; platelet count 372,000; absolute reticulocytes yesterday was 0.1, percent reticulocytes s 2.3, and reticulocyte hemoglobin equivalent 24.6. Sputum Gram stain showed few gram-positive cocci in pairs, chains and clusters. Sputum culture is normal at 12 hours. Blood cultures are negative thus far. Exam (Progress Note) - Constitutional Vitals: Period Temp Pulse Resp BP Sys/Capps Pulse Ox Last 24 Hr 96.5 F-98.0 F 69-95 16-24 112-146/57-67 93-100 Exam: Chest is wheeze free; hyperinflated with prolonged and incomplete expiration; mild loose large airway congestion Heart no gallop Abdomen is nontender and nondistended; bowel sounds are positive 4 Extremities with nothing to suggest acute deep venous thrombophlebitis Psychiatric oriented 3 Neurologic long-term motor function is intact Plan: Continue present treatment. Follow-up final sputum culture when available. Sputum for cytology daily. Follow-up stool for blood when available. Start Mucinex 600 mg twice daily. See orders. Results - Labs CBC & BMP: 05/01/17 06:03 04/30/17 19:18
[2017-05-01] MEDS: MORPHINE 2 MG/1 ML SYRINGE IV PRN (16:31)
--- NOTE | 2017-05-01 18:02 | Hospitalist Progress Note ---
Assessment and Plan (1) Diabetes Status: Chronic Current Visit: No (2) COPD (chronic obstructive pulmonary disease) Status: Acute Current Visit: Yes (3) Left lower lobe pneumonia Status: Acute Current Visit: Yes Hospitalist: Subjective Interval history: No acute events overnight. Patient feeling better. FSG remain elevated, continue to increase Lantus. Decrease steroids. Exam - Constitutional Vitals: Period Temp Pulse Resp BP Sys/Capps Pulse Ox Last 24 Hr 96.5 F-98.0 F 69-94 16-24 112-146/57-78 94-100 General appearance: over weight - Head Head exam: Present: normocephalic, atraumatic - Eye Eye exam: Present: EOMI Pupils: Present: AURELIANO - ENT ENT exam: Present: normal exam - Neck Neck exam: Present: normal inspection - Respiratory Respiratory exam: Present: clear to auscultation bilaterally - Cardiovascular Cardiovascular exam: Present: regular rate and rhythm - GI/Abdominal GI/Abdominal exam: Present: normal bowel sounds, soft. Absent: tenderness, rebound - Extremities Exam Extremities exam: Present: normal inspection - Back Exam Back exam: Present: normal inspection - Neurological Exam Neurological exam: Present: alert, oriented X3 - Psychiatric Psychiatric exam: Present: normal affect, normal mood - Skin Skin exam: Present: warm, intact Results - Labs CBC & BMP: 05/01/17 06:03 04/30/17 19:18
[2017-05-01] MEDS: LEVOFLOXACIN INJ 750 MG in PREMIX 1 EACH IV SCH (18:36)
[2017-05-01] MEDS: INSULIN GLARGINE 100 UNIT/ML SUBCUT SCH (20:20)
[2017-05-01] MEDS: CYCLOBENZAPRINE 10 MG TABLET PO SCH (20:21)
[2017-05-02] MEDS: SODIUM CHLORIDE 0.45% 1,000 ML IV SCH ×3 (02:21→23:01)
[2017-05-02] MEDS: ALBUTEROL/IPRATROPIUM 3 ML NEB RESP TX SCH ×4 (08:32→19:59)
[2017-05-02] MEDS ORDERED: methylPREDNISolone SOD SUC 40 MG/1 ML VIAL IV SCH (09:00)
[2017-05-02] MEDS: DILTIAZEM CD 180 MG CAPSULE PO SCH (09:13)
[2017-05-02] MEDS: FERROUS SULFATE 325 MG TABLET PO SCH ×2 (09:13→20:55)
[2017-05-02] MEDS: hydroCHLOROthiazide 25 MG TABLET PO SCH (09:13)
[2017-05-02] MEDS: INSULIN LISPRO 100 UNIT/ML SUBCUT SCH ×4 (09:13→20:53)
[2017-05-02] MEDS: glipiZIDE 5 MG TABLET PO SCH ×2 (09:14→20:54)
[2017-05-02] MEDS: PANTOPRAZOLE 40 MG TABLET PO SCH (09:15)
[2017-05-02] MEDS: BUDESONIDE/FORMOTEROL 160-4.5 INHALER 6 GM INH SCH ×2 (09:16→20:57)
[2017-05-02] MEDS: LOSARTAN 50 MG TABLET PO SCH (09:23)
--- NOTE | 2017-05-02 10:42 | Pulmonology Progress Note ---
Pulmonary - PN: Subj Interval history: Giovany Haywood, [facility] acting as scribe for Dr. Tim Newton Mrs. Wiseman is a 61-year-old white female who we saw in initial pulmonary consultation on 04/29/2017. At that time, our impressions were: #1: Acute left lower lobe pneumonia #2: Bronchospastic disease #3: History of bullous emphysema requiring bilateral pulmonary reductive surgery #4: History of tobacco abuse. Note patient stopped smoking in 2007. She had an approximately [id number] history. #5: Azotemia #6: Anemia #7: History of gastroesophageal reflux disease with gastric contents coming up into the throat while asleep. Presently under good control. #8: Hyperlipidemia #9: Diabetes mellitus #10: Degenerative joint disease mainly in hands and knees #11: History of solid dysphagia #12: See past history 04/30/2017. The patient was seen today along with several family members. She states that overall she feels her breathing has improved. She continues to have dyspnea on exertion and significant fatigue. We have explained that this will take quite a while to completely resolve. Sputum Gram stain showed few gram-positive cocci in pairs, chains and clusters. Sputum culture is growing organisms at 12 hours. Cold agglutinins are negative. Legionella is pending. She is presently being treated with Levaquin. We made no adjustments to this today. Yesterday, it was noted that she was anemic with decreased indices and increased red blood cell distribution width. B12 level and folate were normal, however, iron studies are significantly low. We have started ferrous sulfate 325 mg twice daily. We will get stools for blood 3 and reticulocytes. 05/01/2017. The patient was seen today along with her and Hilario Han RN. Patient's chest x-ray today shows the previously noted left lower lung infiltrate is less dense. She does, however, continued to cough up some old blood occasionally bright red blood is mixed with it. We will ask for sputum for cytology daily. She has been found to have iron deficiency anemia. She is followed from a standpoint by Dr. Georges Chand at [facility]. She states last year he attempted a colonoscopy, but this can be completed secondary to blood pressure issues. When she was last seen by Dr. Solomon at our clinic, we [facility] stating that this needed to be rescheduled secondary to her history of colon polyps. She states that this is "in the works" but has not been able to be done secondary to her acute illness now. Stools for blood are pending. Patient complains of constipation, so we have started milk of magnesia. 05/02/2017. The patient was seen today along with her daughter and Hilario Han RN. Patient's left lower lobe infiltrate is improving. So far, no organism has been identified. We have explained her that we feel it would be in her best interest to continue IV antibiotics for a few more days. She was in outpatient treatment failure. On chest exam, her previously noted wheezes are significantly improved. Her glucoses have also been markedly elevated secondary to the Solu-Medrol. That said, her hemoglobin A1c is 8.2%. Nonetheless, given her pulmonary improvement, we have decreased her steroids further to 20 mg IV daily. She continues to have sputum production. She states her sputum this morning was figueroa. We are collecting sputum for cytology daily 3 days. Stool for blood 1 is negative. Medications have been reviewed. We have decrease Solu-Medrol to 20 mg IV daily. Labs have been reviewed. No new labs were drawn today. Sputum Gram stain showed few gram-positive cocci in pairs, chains and clusters. Sputum culture grew no organisms. Blood cultures are negative thus far. Stool for blood 1 is negative. Cold agglutinins were negative. Legionella is negative. Exam (Progress Note) - Constitutional Vitals: Period Temp Pulse Resp BP Sys/Capps Pulse Ox Last 24 Hr 96.9 F-98.0 F 65-97 18-28 120-141/63-80 80-99 Exam: Chest is wheeze free; hyperinflated with prolonged and incomplete expiration; mild loose large airway congestion Heart no gallop Abdomen is nontender and nondistended; bowel sounds are positive 4 Extremities with nothing to suggest acute deep venous thrombophlebitis Psychiatric oriented 3 Neurologic long-term motor function is intact Plan: Continue present treatment. Sputum for cytology daily. Follow-up remaining stool for blood when available. We would suggest continuing IV antibiotics for a few more days since we have not identified her organism(s) and she is an outpatient treatment failure. See orders. Results - Labs CBC & BMP: 05/01/17 06:03 04/30/17 19:18
--- NOTE | 2017-05-02 15:59 | Hospitalist Progress Note ---
Assessment and Plan (1) Diabetes Status: Chronic Current Visit: No (2) COPD (chronic obstructive pulmonary disease) Status: Acute Current Visit: Yes (3) Left lower lobe pneumonia Status: Acute Current Visit: Yes Hospitalist: Subjective Interval history: No acute events overnight. Continues to feel better. Exam - Constitutional Vitals: Period Temp Pulse Resp BP Sys/Capps Pulse Ox Last 24 Hr 96.9 F-98.1 F 65-97 18-28 120-152/63-80 80-99 General appearance: over weight - Head Head exam: Present: normocephalic, atraumatic - Eye Eye exam: Present: EOMI Pupils: Present: AURELIANO - ENT ENT exam: Present: normal exam - Neck Neck exam: Present: normal inspection - Respiratory Respiratory exam: Present: clear to auscultation bilaterally. Absent: rhonchi, wheezes - Cardiovascular Cardiovascular exam: Present: regular rate and rhythm - GI/Abdominal GI/Abdominal exam: Present: normal bowel sounds, soft. Absent: tenderness, rebound - Extremities Exam Extremities exam: Present: normal inspection - Back Exam Back exam: Present: normal inspection - Neurological Exam Neurological exam: Present: alert, oriented X3 - Psychiatric Psychiatric exam: Present: normal affect, normal mood - Skin Skin exam: Present: warm, intact Results - Labs CBC & BMP: 05/01/17 06:03 04/30/17 19:18
[2017-05-02] MEDS: LEVOFLOXACIN INJ 750 MG in PREMIX 1 EACH IV SCH (17:08)
[2017-05-02] MEDS: MORPHINE 2 MG/1 ML SYRINGE IV PRN (18:37)
[2017-05-02] MEDS: INSULIN GLARGINE 100 UNIT/ML SUBCUT SCH (20:53)
[2017-05-02] MEDS: CYCLOBENZAPRINE 10 MG TABLET PO SCH (20:54)
[2017-05-03] MEDS: ALBUTEROL/IPRATROPIUM 3 ML NEB RESP TX SCH ×4 (01:45→18:59)
[2017-05-03] MEDS: INSULIN LISPRO 100 UNIT/ML SUBCUT SCH ×4 (08:26→20:44)
[2017-05-03] MEDS: methylPREDNISolone SOD SUC 40 MG/1 ML VIAL IV SCH (08:27)
[2017-05-03] MEDS: FERROUS SULFATE 325 MG TABLET PO SCH ×2 (08:27→20:44)
[2017-05-03] MEDS: hydroCHLOROthiazide 25 MG TABLET PO SCH (08:27)
[2017-05-03] MEDS: glipiZIDE 5 MG TABLET PO SCH ×2 (08:27→20:44)
[2017-05-03] MEDS: LOSARTAN 50 MG TABLET PO SCH (08:27)
[2017-05-03] MEDS: BUDESONIDE/FORMOTEROL 160-4.5 INHALER 6 GM INH SCH ×2 (08:28→22:22)
[2017-05-03] MEDS: PANTOPRAZOLE 40 MG TABLET PO SCH (08:28)
[2017-05-03] MEDS: DILTIAZEM CD 180 MG CAPSULE PO SCH (08:28)
--- NOTE | 2017-05-03 10:35 | Pulmonology Progress Note ---
Pulmonary - PN: Subj Interval history: Patient is a 61-year-old white lady that has significant COPD and came in with a left lower lobe pneumonia. She says she is feeling much better and feels like her breathing is better. She is tolerating her medicines and starting to walk around a little more. Her cough is better and overall she says she is improving. Exam (Progress Note) - Constitutional Vitals: Period Temp Pulse Resp BP Sys/Capps Pulse Ox Last 24 Hr 97.3 F-98.2 F 67-92 18-22 127-153/74-83 97-99 General appearance: no acute distress, over weight - Head Head exam: Present: normal inspection, normocephalic - Eye Eye exam: Present: EOMI. Absent: scleral icterus Pupils: Present: AURELIANO - ENT ENT exam: Present: normal exam - Neck Neck exam: Present: normal inspection. Absent: lymphadenopathy, thyromegaly - Respiratory Respiratory exam: Present: prolonged expiratory phase, rhonchi. Absent: wheezes - Cardiovascular Cardiovascular exam: Present: regular rate and rhythm. Absent: gallop, systolic murmur - GI/Abdominal GI/Abdominal exam: Present: normal bowel sounds, soft. Absent: organomegaly, tenderness - Extremities Exam Extremities exam: Absent: calf tenderness, edema - Neurological Exam Neurological exam: Present: alert, oriented X3, CN II-XII intact. Absent: motor sensory deficit - Psychiatric Psychiatric exam: Present: normal affect, normal mood - Skin Skin exam: Present: warm, dry Results - Labs CBC & BMP: 05/01/17 06:03 04/30/17 19:18 Assessment and Plan (1) Diabetes Status: Chronic Assessment and plan: The patient's glucose is over 300 on steroids. She will continue with insulin. Current Visit: No (2) COPD (chronic obstructive pulmonary disease) Status: Acute Assessment and plan: Patient has severe COPD and is getting treatment. She seems to be stable at present. Current Visit: Yes (3) Left lower lobe pneumonia Status: Acute Assessment and plan: The patient is being treated for pneumonia. She is tolerating her treatment okay. Current Visit: Yes
[2017-05-03] MEDS ORDERED: INSULIN GLARGINE 100 UNIT/ML SUBCUT SCH (10:57)
--- NOTE | 2017-05-03 11:33 | Hospitalist Progress Note ---
Assessment and Plan (1) Diabetes Status: Chronic Assessment and plan: FSG difficult to control on steroids Increasing Lantus daily Steroids decreased SSI Current Visit: No (2) COPD (chronic obstructive pulmonary disease) Status: Acute Assessment and plan: duonebs, steroids, levaquin Current Visit: Yes (3) Left lower lobe pneumonia Status: Acute Assessment and plan: levaquin Current Visit: Yes Hospitalist: Subjective Interval history: No acute events overnight. Patient doing better. Mild shortness of breath with ambulating around room. Exam - Constitutional Vitals: Period Temp Pulse Resp BP Sys/Capps Pulse Ox Last 24 Hr 96.2 F-98.2 F 67-92 18-20 127-153/74-83 97-100 General appearance: over weight - Head Head exam: Present: normocephalic, atraumatic - Eye Eye exam: Present: EOMI Pupils: Present: AURELIANO - ENT ENT exam: Present: normal exam - Neck Neck exam: Present: normal inspection - Respiratory Respiratory exam: Present: clear to auscultation bilaterally - Cardiovascular Cardiovascular exam: Present: regular rate and rhythm - GI/Abdominal GI/Abdominal exam: Present: normal bowel sounds, soft. Absent: tenderness, rebound - Extremities Exam Extremities exam: Present: normal inspection - Back Exam Back exam: Present: normal inspection - Neurological Exam Neurological exam: Present: alert, oriented X3 - Psychiatric Psychiatric exam: Present: normal affect, normal mood - Skin Skin exam: Present: warm, intact Results - Labs CBC & BMP: 05/01/17 06:03 04/30/17 19:18
[2017-05-03] MEDS: SODIUM CHLORIDE 0.45% 1,000 ML IV SCH ×2 (17:45→22:22)
[2017-05-03] MEDS: LEVOFLOXACIN INJ 750 MG in PREMIX 1 EACH IV SCH (17:46)
[2017-05-03] MEDS: CYCLOBENZAPRINE 10 MG TABLET PO SCH (20:44)
[2017-05-04] MEDS: SODIUM CHLORIDE 0.45% 1,000 ML IV SCH (05:09)
[2017-05-04] MEDS: ALBUTEROL/IPRATROPIUM 3 ML NEB RESP TX SCH ×2 (07:56)
[2017-05-04] MEDS: INSULIN LISPRO 100 UNIT/ML SUBCUT SCH (08:06)
[2017-05-04] MEDS: methylPREDNISolone SOD SUC 40 MG/1 ML VIAL IV SCH (09:04)
--- NOTE | 2017-05-04 09:04 | Discharge Summary ---
<Justin Gaines - Last Filed: 05/04/17 08:52> Hospital Course - Hospital Course Hospital Course: Ms. Wiseman is a 61-year-old white female with a history of hypertension, diabetes, COPD, bilateral lung reduction surgery, O2 dependent 10 years, IBS, and hiatal hernia that presented to the ED for further evaluation of shortness of breath on 04/28. Patient stated that she was feeling ill since Friday and started with left-sided pain. Patient took muscle relaxants with the pain was uncontrollable. She later began to experience shortness of breath and then developed a cough. Cough was initially nonproductive with the patient began to cough up blood intermittently. CT revealed left lower lobe pneumonia. Patient was admitted to the hospitalist service for further evaluation and treatment. Patient was started on IV antibiotics. IV steroids and breathing treatments were provided. Patient was also placed on a sliding scale insulin regimen for management of her diabetes. Pulmonary was consulted to see the patient. Iron studies performed on patient. Inhalation therapy was continued and sputum samples were gathered. Mucinex 600 mg was started for patient. Patient was noted to have an increase in blood sugars due to use of steroids. Lantus was increased and steroids were decreased. Patient began to see an improvement in breathing. She was able to ambulate. Her cough is better. Patient is stable and able to be discharged home. Diagnosis - Discharge Diagnosis (1) Left lower lobe pneumonia Status: Acute (2) COPD (chronic obstructive pulmonary disease) Status: Chronic (3) Diabetes Status: Chronic (4) O2 dependent Status: Chronic Discharge Plan - Discharge Data Disposition: Disch To Home/Self Care - Discharge Medications New Levofloxacin Tab [Levaquin Tab] 750 mg PO DAILY #4 tablet predniSONE TAB [PredniSONE] 10 mg PO DAILY #20 tablet Ferrous Sulfate Tab [Feosol Original Tab] 325 mg PO BID #60 tablet Continue Tiotropium Inhalation [Spiriva] 18 mcg INH DAILY Budesonide/Formoterol 160-4.5 [Symbicort 160-4.5] 2 puff INH BID Potassium Chloride 20 meq PO QAM Montelukast Tab [Singulair Tab] 10 mg PO QAM Meloxicam [Mobic] 15 mg PO QAM PRN PRN Reason: Pain hydroCHLOROthiazide [Hydrochlorothiazide] 25 mg PO QAM dilTIAZem HCl [Diltiazem ER (24 hr)] 360 mg PO QAM Albuterol Sulfate [Albuterol Neb] 2.5 mg RESP TX Q4HR Albuterol Sulfate [Albuterol Inhaler] 1 puff INH Q4H PRN PRN Reason: Shortness Of Breath/Wheezing Vitamin E 400 unit PO QAM Multivitamin (Centrum) [Centrum Tab] 1 tablet PO QAM Pantoprazole Tab [Protonix Tab] 40 mg PO QAM Metformin HCl 1,000 mg PO BID glipiZIDE [Glipizide] 2.5 mg PO BID Fluticasone Propionate [Fluticasone 50 mcg Nasal [place]] 1 spray BOTH NARES BID Losartan Potassium 100 mg PO QAM Albuterol Sulfate [Albuterol Liquid] 1 mg PO TID PRN PRN Reason: Shortness Of Breath/Wheezing Budesonide/Formoterol 160-4.5 [Symbicort 160-4.5] 1 puff PO BID Discontinued predniSONE TAB [PredniSONE] 20 mg PO BID PRN PRN Reason: "EMERGENCY MEDS" Moxifloxacin HCl [Moxifloxacin Tab] 400 mg PO DAILY PRN PRN Reason: "EMERGENCY MEDS" - Follow Up or Referral - Forms/Instructions Exam - Constitutional Vitals: Period Temp Pulse Resp BP Sys/Capps Pulse Ox Last 24 Hr 96.2 F-97.6 F 69-92 17-21 130-161/64-94 97-100 Discharge Results Procedures and tests throughout hospitalization: Pending Orders 05/01/17 10:53 Occult Blood, Stool Routine 05/02/17 04:00 Cytology Request IN AM Labs on day of discharge: Labs from last 24 hours 05/04/17 05/03/17 05/03/17 07:23 21:50 20:37 POC Glucose 98 365 H 402 H 05/03/17 05/03/17 05/03/17 17:25 11:33 07:15 POC Glucose 293 H 335 H 243 H DS: Provider Date of admission: 04/28/17 16:09 Primary care physician: . No PCP Attending physician on admission: Justin Kennedy MD Consults: 04/28/17 18:32 Consult to Physician [CONS] Routine Comment: Consulting Provider: iTm Newton Person Notified: AWARE Date Notified: 04/29/17 Time Notified: 08:46 Discharging clinician: Justin Gaines NP <Deb Gomes - Last Filed: 05/04/17 10:34> Hospital Course - Time spent with patient Time with patient DS: Greater than 30 minutes (35) Diagnosis - Discharge Diagnosis (1) Diabetes Status: Chronic (2) COPD (chronic obstructive pulmonary disease) Status: Chronic (3) Left lower lobe pneumonia Status: Resolved Discharge Plan - Discharge Data Condition at Discharge: Stable Discharge Diet: diabetic diet Activity: increase activity as tolerated Hygiene: no restrictions Weight Bearing at Discharge: weight bear as tolerated Contact your physician if you experience:: fever over 101, Shortness of breath Exam - Constitutional General appearance: over weight - Head Head exam: Present: normocephalic, atraumatic - Eye Eye exam: Present: EOMI Pupils: Present: AURELIANO - ENT ENT exam: Present: normal exam - Neck Neck exam: Present: normal inspection - Respiratory Respiratory exam: Present: clear to auscultation bilaterally - Cardiovascular Cardiovascular exam: Present: regular rate and rhythm - GI/Abdominal GI/Abdominal exam: Present: normal bowel sounds, soft. Absent: tenderness, rebound - Extremities Exam Extremities exam: Present: normal inspection - Back Exam Back exam: Present: normal inspection - Neurological Exam Neurological exam: Present: alert, oriented X3 - Psychiatric Psychiatric exam: Present: normal affect, normal mood - Skin Skin exam: Present: warm, intact
[2017-05-04] MEDS: PANTOPRAZOLE 40 MG TABLET PO SCH (09:05)
[2017-05-04] MEDS: glipiZIDE 5 MG TABLET PO SCH (09:05)
[2017-05-04] MEDS: DILTIAZEM CD 180 MG CAPSULE PO SCH (09:05)
[2017-05-04] MEDS: FERROUS SULFATE 325 MG TABLET PO SCH (09:05)
[2017-05-04] MEDS: hydroCHLOROthiazide 25 MG TABLET PO SCH (09:05)
[2017-05-04] MEDS: BUDESONIDE/FORMOTEROL 160-4.5 INHALER 6 GM INH SCH (09:05)
--- NOTE | 2017-05-04 09:19 | Pulmonology Progress Note ---
Pulmonary - PN: Subj Interval history: Patient is a 61-year-old white lady that has significant COPD and came in with a left lower lobe pneumonia. She says she is feeling much better and feels like her breathing is better. She is tolerating her medicines and starting to walk around a little more. She says she is breathing much better and wants to go home today. She is not having any shortness of breath at present. She feels like her cough and congestion are much better. She can go home on oral antibiotics today. Exam (Progress Note) - Constitutional Vitals: Period Temp Pulse Resp BP Sys/Capps Pulse Ox Last 24 Hr 96.9 F-97.6 F 69-89 17-21 130-161/64-93 97-100 Exam: General appearance: no acute distress, over weight, she is ambulating and feels better. - Head Head exam: Present: normal inspection, normocephalic - Eye Eye exam: Present: EOMI. Absent: scleral icterus Pupils: Present: AURELIANO - ENT ENT exam: Present: normal exam - Neck Neck exam: Present: normal inspection. Absent: lymphadenopathy, thyromegaly - Respiratory Respiratory exam: Present: Her lungs have distant breath sounds but I do not hear any wheezing at present. - Cardiovascular Cardiovascular exam: Present: regular rate and rhythm. Absent: gallop, systolic murmur - GI/Abdominal GI/Abdominal exam: Present: normal bowel sounds, soft. Absent: organomegaly, tenderness - Extremities Exam Extremities exam: Absent: calf tenderness, edema - Neurological Exam Neurological exam: Present: alert, oriented X3, CN II-XII intact. Absent: motor sensory deficit - Psychiatric Psychiatric exam: Present: normal affect, normal mood - Skin Skin exam: Present: warm, dry Results - Labs CBC & BMP: 05/01/17 06:03 04/30/17 19:18 Assessment and Plan (1) Diabetes Status: Chronic Assessment and plan: The patient's glucose is over 98 on steroids. She will continue with insulin. Current Visit: No (2) COPD (chronic obstructive pulmonary disease) Status: Acute Assessment and plan: Patient has severe COPD and is getting treatment. She seems to be stable at present. She wants to go home and will continue bronchodilator therapy at home. Current Visit: Yes (3) Left lower lobe pneumonia Status: Acute Assessment and plan: The patient is being treated for pneumonia. Clinically she is much better and is breathing better. She wants to go home today. Current Visit: Yes
[2017-05-04 09:28] VITALS: BP 142/94
[2017-05-04] MEDS: LOSARTAN 50 MG TABLET PO SCH (11:13)
== END 2017-05-04 11:30 | disposition home or self-care (01) | DRG 190 ==
LOC: N.ED 14:23 → N.EDINP 16:09 → SUATTDRO 16:09 → N.5E 16:46
PROVIDERS: ADMIT Internal Medicine; ATTEND Internal Medicine